=== PATIENT | male | born 1980 | race Caucasian/White ===

== ENCOUNTER → 2016-08-09 | Outpatient (CLI) | payer OTHER ==
--- NOTE | 2016-08-18 18:27 | CDE ---
ADMIT: 08/09/2016 RM/LOC: [facility] MR#: [id number] [id number] [facility] [address] [place], [place] [phone] JUAN JOSE MCGEE [address] [place] [address] Chemical Dependency Evaluation SEX: M AGE: 35 : 1980 CORRECTED: 08/13/2016 [address]. DEMOGRAPHICS: NAME: Juan Jose Mcgee DATE OF : 1980 EVALUATING COUNSELOR: RADHA Rivas, [facility] DATE OF EVALUATION: 08/09/2016 B. PRESENTING PROBLEM/CHIEF COMPLAINT: This client is a 35-year-old male who lives in [place], [place]. He is presenting for this drug and alcohol evaluation after being referred by his housing officer. He reports he was on probation for aggravated DUI that he got in August of 2015. He currently has a probation violation when he failed a Breathalyzer test. C. 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 A few months ago, he found out that this has caused him to have mini seizures and he is now on medication. He takes Keppra and Vimpat, both for mini seizures. He started this medication 6 months ago. 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 D. WORK/SCHOOL/ HISTORY: Client reports that he works 25-30 hours for [employer]. 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 He was an railway equipment operator. He quit those 2 jobs for better pay. He reports that he has a college degree, associates degree in farm and ranch management. He got this degree in 2000. He has never been in the . E. ALCOHOL/DRUG ASSESSMENT SUMMARY: ALCOHOL: Client first started drinking at age 16. He would drink 3-4 beers 2-3 times a week. The most he has drank is 12-15 beers. Last time he drank was 08/06/2016, drinking one beer. MARIJUANA: Denies any use. COCAINE: Denies any use. AMPHETAMINES: Denies any use. HALLUCINOGENS: Denies any use. HEROIN: Denies any use. PRESCRIPTION DRUGS: Never has abused. OTHER DRUGS (INHALANTS, OVER THE COUNTER, ETC): Denies any use. NICOTINE: ADMIT: 08/09/2016 RM/LOC: [facility]TC.[facility] MR#: [id number] [address] [place] [id number] EVERARDOJUAN JOSE ZARAGOZA [address] [place] [address] Chemical Dependency Evaluation SEX: M AGE: 35 : 1980 F. LEGAL HISTORY: Client got a minor in possession of alcohol in 1999, he was 18 years old and he had to pay a fine. Current charge was in August of 2015. Client got aggravated driving under the influence charge. He reports that his MELANIE was 0.20. He reports that he had to get an evaluation and do an alcohol class and he is on probation. Recently he failed a Breathalyzer test for alcohol and so he has a probation violation. G. FAMILY/SOCIAL/PEER HISTORY: Client reports that he was raised in [place], [place]. His parents are still . He reports that his dad does drink pretty heavy, mom hardly drinks at all. He is and he has 4 daughters including twins who are age 6. His oldest daughter is 9 and the youngest is 1. He describes his relationship with his parents as good. He admits that his gets irritated when he drinks, especially now that he is on probation. His works as a nursing secretary. The client reports that he had a good upbringing. H. PSYCHIATRIC/BEHAVIORAL HISTORY: Client was asked if he has ever been suicidal and he reported no and there is no family history of suicide. He has never been in any counseling, never had any behavioral problems. I. COLLATERAL INFORMATION: None at this time. THE DRINKER TYPE RATING: Is a measure of how the client perceives their own drinking and/or using. This rating is indicative of how resistant or accepting the person is to the drinking problem. The client chose their rating from the following classifications: ALCOHOL Total Abstainer Light Social (non-problem) Drinker Moderate Social (non-problem) Drinker User Heavy Social (non-problem)Drinker Problem Drinker Alcoholic OTHER DRUG Nonuser Light Social (non-problem) User Moderate Social (non-problem) User ADMIT: 08/09/2016 RM/LOC: [facility] MR#: [id number] [address] [place] [phone] [place] [address] [place] [address] Chemical Dependency Evaluation SEX: M AGE: 35 : 1980 Heavy Social (non-problem) User Problem User Addicted/Dependent The client rated himself as a heavy social non problem drinker of alcohol and a nonuser of drugs. SUBSTANCE ABUSE SUBTLE SCREENING INVENTORY (SASSI): The SASSI is an assessment tool specifically designed to provide a clearer picture of what lies beneath the facade presented by most patients or clients. Scores on this assessment aid in distinguishing nonabusers from abusers, alcoholics from drug abusers and nondefensive clients from defensive ones. The incorporation of a "denial scale" further enhances the ability to make an accurate recommendation. Client scores are: Face Valid Alcohol (FVA): 14. Face Valid Other Drugs (FVOD): 0. Symptoms (SYM): 4. Obvious Attributes (OAT): 7. Subtle Attributes (SAT): 3. Defensiveness (DEF): 8. Supplemental Addiction Measure (LYSSA): 9. Family versus Controls (FAM): 10. Correctional (COR): 5. Random Answering Pattern (RAP): These scores would indicate: The decision rule shows a high probability of a gybevrkw-ae-ndfgcn substance use disorder. We administered the ASI. Please see attached summary sheet. K. CLINICAL IMPRESSION: This client was cooperative for the evaluation and he answered all questions, had good eye contact. He admits that his gets irritated when he drinks alcohol, especially now that he is on probation. Client admits that he has quit drinking in the past, but always starts again. DIAGNOSES: 1. F10.20, alcohol use disorder, moderate. 2. Z65.0, legal problems, probation. Criteria showing alcohol use disorder moderate is tolerance. Client has needed increased amounts to achieve the same effect, and alcohol is often taken in ADMIT: 08/09/2016 RM/LOC: [facility] MR#: [id number] [address] [place] [id number] JUAN JOSE MCGEE [address] [place] [address] Chemical Dependency Evaluation SEX: M AGE: 35 : 1980 larger amounts or over longer period than was intended, and client has had persistent desire, but unsuccessful efforts to cut down or control his use. He has had cravings or a strong desire to use. Client has continued use despite being on probation. Consequences client has had from his alcohol use are legal issues, family issues, his is worried, the legal problems are costing him money, client has lost his license, and he has to use interlock. L. RECOMMENDATIONS PRESENTED TO CLIENT: This client is to attend the intensive outpatient program and attend AA meetings and obtain a sponsor. CLIENT/FAMILY RESPONSE: Client agreed that he would follow through with our recommendations. [facility] CLINICAL ASSESSMENT CRITERIA: Low/Medium/High Dimension 1 = Intoxication and Withdrawal (i.e. history of withdrawal, level of current use): Medium. Dimension 2 = Medical (i.e. , diabetes, medications, chronic conditions): Medium. Dimension 3 = Emotional/Behavior Conditions (i.e. psych history, impulsivity, depression, anxiety, trauma history): Medium. Dimension 4 = Treatment Acceptance/Resistance (i.e. past history, minimization/blame, acknowledgement of problem, pressure to seek treatment, does not feel they have a problem): Dimension 5 = Relapse Potential (i.e. inability to abstain, use despite consequences, significant preoccupation, relapse despite outpatient treatment attempts): Medium to high. Dimension 6 = Recovery/Living Environment ADMIT: 08/09/2016 RM/LOC: [facility] MR#: [id number] [address] [place] [phone] JUAN JOSE MCGEE [address] [place] [address] Chemical Dependency Evaluation SEX: M AGE: 35 : 1980 (i.e. current users reside in environment, family attitude, lack of consistent adult support in living environment, high exposure to using in social/work environment): Medium to high. CRIMINOGENIC RISK FACTORS: Low/Moderate/High Antisocial Attitudes: Medium. Antisocial Peers: Medium. Self Control Skills: Medium. Family Dysfunction: Medium. Past Criminality: Medium. RADHA Rivas, PHU/ ninoska JOB #: [id number] CC: CORRECTED: 08/13/2016 121 [address]ILIANA
== END | disposition home or self-care (01) ==
LOC: ADTC.GI 13:07
DX: F10.20 Alcohol dependence, uncomplicated (principal)